=== PATIENT | male | born 1970 | race Caucasian/White ===

== ENCOUNTER 2021-04-01 08:38 | Emergency (ER) | payer OTHER, SELFPAY ==
[2021-04-01 08:48] VITALS: BP 144/91; PULSE 101; RESP 18; TEMP 36.7; O2SAT 97; BMI 28.9
--- NOTE | 2021-04-01 09:24 | ED.DENTAL ---
HPI - Dental/Oral General Chief complaint: Dental/Oral Stated complaint: Dental Pain Time Seen by Provider: 04/01/21 09:24 History of Present Illness HPI Narrative: Patient complains of a sore on the back of his tongue the near were a filling has been rubbing, noticed it 2 days ago not sure how long it has been there Related Data Allergies Allergy/AdvReac Type Severity Reaction Status Date / Time No Known Allergies Allergy Verified 04/01/21 08:48 Review of Systems Review of Systems: Positive for sore in tongue Negatives are no fever no chills no headache no neck pain no sore throat no difficulty breathing or swallowing Yes all other systems are reviewed and are negative PMFSH Past Medical History Source: nursing notes reviewed Social History Social History Advance Directives: No Advance Directives Information Provided: No Physical Exam Vital Signs: Vital Signs: Last Vital Signs Temp 98.1 F 04/01/21 08:48 Pulse 101 H 04/01/21 08:48 Resp 18 04/01/21 08:48 BP 144/91 H 04/01/21 08:48 Pulse Ox 97 04/01/21 08:48 BMI result Body Mass Index 28.9 General appearance no distress The eyes no redness or discharge The pharynx is clear with no redness swelling or exudate Intraoral exam there is a loose filling with a sharp edge in the back of the mouth on the right side with no gum swelling no significant tenderness The back of the tongue next to the rough filling which has a rough edge right near the tongue is abraded and red and mildly tender Voice is normal no trismus Course Course Course Narrative: Patient who is a long-time smoker with a lesion on the back of his tongue which is most likely abrasion and irritation from a sharp loose filling right next to the area is discharged but with the warning that any lesion in a long-term smoker needs to be evaluated by a dentist or an oral surgeon to be sure it is not of malignancy He understood this he will make an appointment with the dentist Discharge Plan Discharge Clinical Impression: Tongue lesion Patient Disposition: Home, Self-Care Additional Instructions: The sore red spot on the back of your tongue may be from being rubbed against a rough filling Follow with dentist for further evaluation If sore goes away when filling is corrected no further care will be needed but if the sore remains it may need to be biopsied, so follow-up next week Interventions: ED Discharge Assessment Last Done: 04/01/21 10:00 Discharge Date/Time: 04/01/21 10:00
== END 2021-04-01 10:00 | disposition home or self-care (01) ==
PROVIDERS: Emergency Provider Emergency Medicine
DX: K13.70 Unspecified lesions of oral mucosa (principal); F17.200 Nicotine dependence, unspecified, uncomplicated
CPT/HCPCS: 99283